=== PATIENT | female | born 1980 | race Caucasian/White ===

== ENCOUNTER 2017-07-19 18:22 | Emergency (ER) | payer OTHER ==
[~2017-07-19] VITALS: Ht 172.7 cm; Wt 70.3 kg
[2017-07-19] MEDS ORDERED: MIRALAX17 GM PO (18:40)
[2017-07-19] MEDS ORDERED: CELEXA10 MG PO (18:40)
[2017-07-19] MEDS ORDERED: TORADOL 10 MG T10 MG PO (18:40)
[2017-07-19 18:57] LABS: URINE BILIRUBIN NEGATIVE (Negative); URINE BLOOD 1+ (Negative); URINE CLARITY CLEAR; URINE COLOR YELLOW; URINE GLUCOSE-RANDOM NEGATIVE (Negative); URINE KETONES NEGATIVE (Negative); URINE LEUKOCYTES-REFLEX NEGATIVE (Negative); URINE NITRITE-REFLEX NEGATIVE (Negative); URINE PROTEIN NEGATIVE (Negative); URINE SPECIFIC GRAVITY 1.015 (1.005-1.030); URINE UROBILINOGEN 0.2 E.U./dl (0.2-1.0)
[2017-07-19 19:11] LABS: ABSOLUTE BASOPHILS 0.1 thou/uL (0.0-0.2); ABSOLUTE EOSINOPHILS 0.1 thou/uL (0.0-0.7); ABSOLUTE LYMPHOCYTES 1.9 thou/uL (0.8-5.3); ABSOLUTE MONOCYTES 0.4 thou/uL (0.0-1.2); ABSOLUTE NEUTROPHILS 3.7 thou/uL (1.6-8.1); BASOPHILS 1.3 %; EOSINOPHILS 1.5 %; HEMATOCRIT 37.2 % (37.0-47.0); HEMOGLOBIN 12.8 gm/dL (12.0-15.0); LYMPHOCYTES 30.3 %; MCH 31.2 pg (26.0-34.0); MCHC 34.5 g/dL (28.0-37.0); MCV 90.4 fL (80.0-100.0); MONOCYTES 6.4 %; MPV 7.9 fl. (7.2-11.1); NUCLEATED RBCS 0 /100WBC; PLATELET COUNT* 232 thou/uL (150-400); POLYS 60.5 %; RBC 4.12 mil/uL (4.20-5.00); RDW-CV 12.6 % (10.5-14.5); WBC 6.1 thou/uL (4.0-11.0)
[2017-07-19 19:15] LABS: CALCIUM 8.4 mg/dL (8.5-10.1); CREATININE 1.2 mg/dL (0.6-1.3); POTASSIUM 3.9 mmol/L (3.5-5.1)
[2017-07-19 19:17] LABS: SQUAMOUS 0-3 Few /LPF (0-3)
[2017-07-19 19:18] LABS: BACTERIA-REFLEX None Seen /HPF (None Seen); CASTS None Seen /LPF (None Seen); CRYSTALS None Seen /LPF (None Seen); MUCUS None Seen strn/LPF (None Seen); URINE RBC 3-10 Few /HPF (0-2); URINE WBC-REFLEX None Seen /HPF (0-5)
[2017-07-19 19:20] LABS: ALBUMIN 3.5 g/dL (3.4-5.0); TOTAL BILIRUBIN 0.2 mg/dL (<0.1-1.0); TOTAL PROTEIN 6.7 g/dL (6.4-8.2)
[2017-07-19] MEDS ORDERED: PERCOCET 5-3251 EACH PO (20:15)
[2017-07-19] MEDS ORDERED: FLOMAX0.4 MG PO (20:15)
[2017-07-19] MEDS ORDERED: ZOFRAN ODT4 MG PO (20:15)
[2017-07-19 20:45] VITALS: BP 121/92
== END 2017-07-19 20:47 | disposition home or self-care (01) ==
LOC: M.ERS 18:22
PROVIDERS: Nurse Practitioner Family
DX: N20.1 Calculus of ureter (principal); R31.9 Hematuria, unspecified; Z87.442 Personal history of urinary calculi

== ENCOUNTER 2017-07-22 14:54 | Inpatient (IN) | payer OTHER ==
[~2017-07-22] VITALS: Ht 172.7 cm; Wt 72.6 kg
[~2017-07-22 14:54] MED LIST: CELEXA10 MG PO; FLOMAX0.4 MG PO; MIRALAX17 GM PO; PERCOCET 5-3251 EACH PO; TORADOL 10 MG T10 MG PO; ZOFRAN ODT4 MG PO
[2017-07-22 15:06] VITALS: BP 113/86
[2017-07-22 15:24] LABS: URINE BILIRUBIN NEGATIVE (Negative); URINE BLOOD TRACE (Negative); URINE CLARITY CLEAR; URINE COLOR STRAW; URINE GLUCOSE-RANDOM NEGATIVE (Negative); URINE KETONES NEGATIVE (Negative); URINE LEUKOCYTES-REFLEX 1+ (Negative); URINE NITRITE-REFLEX NEGATIVE (Negative); URINE PROTEIN NEGATIVE (Negative); URINE SPECIFIC GRAVITY <= 1.005 (1.005-1.030); URINE UROBILINOGEN 0.2 E.U./dl (0.2-1.0)
[2017-07-22 15:31] LABS: CASTS None Seen /LPF (None Seen); CRYSTALS None Seen /LPF (None Seen); SQUAMOUS >10 Many /LPF (0-3)
[2017-07-22 15:32] LABS: URINE RBC 0-2 Rare /HPF (0-2); URINE WBC-REFLEX 0-5 Rare /HPF (0-5)
[2017-07-22 15:50] LABS: ABSOLUTE BASOPHILS 0.1 thou/uL (0.0-0.2); ABSOLUTE EOSINOPHILS 0.1 thou/uL (0.0-0.7); ABSOLUTE LYMPHOCYTES 1.9 thou/uL (0.8-5.3); ABSOLUTE MONOCYTES 0.4 thou/uL (0.0-1.2); BASOPHILS 1.1 %; EOSINOPHILS 0.9 %; HEMATOCRIT 34.6 % (37.0-47.0); HEMOGLOBIN 11.8 gm/dL (12.0-15.0); LYMPHOCYTES 29.1 %; MCH 31.1 pg (26.0-34.0); MCHC 34.2 g/dL (28.0-37.0); MCV 90.9 fL (80.0-100.0); MONOCYTES 6.8 %; MPV 8.2 fl. (7.2-11.1); NUCLEATED RBCS 0 /100WBC; PLATELET COUNT* 229 thou/uL (150-400); POLYS 62.1 %; RBC 3.81 mil/uL (4.20-5.00); RDW-CV 12.4 % (10.5-14.5); WBC 6.4 thou/uL (4.0-11.0)
[2017-07-22 15:59] LABS: CALCIUM 8.6 mg/dL (8.5-10.1); CREATININE 1.2 mg/dL (0.6-1.3); POTASSIUM 3.8 mmol/L (3.5-5.1)
[2017-07-22 16:04] LABS: ALBUMIN 3.5 g/dL (3.4-5.0); TOTAL BILIRUBIN 0.3 mg/dL (<0.1-1.0); TOTAL PROTEIN 7.1 g/dL (6.4-8.2)
[2017-07-22 17:08] VITALS: BP 126/81
[2017-07-22 17:44] VITALS: BP 122/76
[2017-07-22 20:30] VITALS: BP 102/72
[2017-07-23 08:00] VITALS: BP 101/61
[2017-07-23 10:25] VITALS: BP 101/61
[2017-07-23 15:30] VITALS: BP 98/71
[2017-07-23] MEDS ORDERED: LEVSIN-SL0.125 MG PO (19:03)
[2017-07-23] MEDS ORDERED: PHENAZOPYRIDIN200 M2 PO (19:04)
[2017-07-23 19:06] VITALS: BP 98/71
--- NOTE | 2017-07-27 15:49 | OP ---
[facility] [address] [place] [address] OPERATIVE REPORT Name: ZAC RICHARDS Room: [address]#: [id number] Admission: 07/22/17 Attend Phys: Smooth Wolfe, Discharge: 07/23/17 Date of : 80 Report #: [id number] THIS REPORT FOR: //name// CC: [facility] Peri Mathewsrick Wolfe DATE OF SERVICE: 07/23/2017 PREOPERATIVE DIAGNOSIS: Left proximal ureteral stone. POSTOPERATIVE DIAGNOSIS: Left proximal ureteral stone. PROCEDURE: Cystourethroscopy, left retrograde pyelogram, left ureteroscopy, laser lithotripsy, basket extraction of stone and left ureteral stent placement (6 x 26). SURGEON: Kacey Parra M.D. ANESTHESIA: General. ESTIMATED BLOOD LOSS: None. COMPLICATIONS: None. SPECIMEN: Stone. INDICATION FOR PROCEDURE: The patient is a 36-year-old female with a 6-7 mm left proximal stone. She has failed outpatient management. She saw me in clinic last week and we had put her on the schedule next week for her elective ureteroscopy, but she presented to the ER last night with intractable nausea, vomiting and pain. She does wish to go ahead and proceed with ureteroscopy now. Risks of procedure were discussed including but not limited to infection, bleeding, injury to the urethra, bladder, ureter, need for secondary procedures, ureteral stricture, stent pain, cardiopulmonary complications. She voiced understanding and wished to proceed. DESCRIPTION OF PROCEDURE: After informed consent was obtained, the patient was taken to the operating suite and placed supine. After induction of general anesthesia, she was placed in dorsal lithotomy position. Genitalia were prepped and draped in standard fashion. Rigid cystoscopy was performed. Bladder mucosa was normal. She had orthotopic ureteral orifices. The stone was visible on fluoroscopy in the proximal ureter. A sensor wire was inserted up into the kidney, past the stone without much difficulty. A scope was removed using dual lumen catheter. Retrograde was performed. No other filling defects were noted and aside from the proximal stone. A second wire was [place] [address] OPERATIVE REPORT Name: ZAC RICHARDS Room: [address]#: [id number] Admission: 07/22/17 Attend Phys: Smooth Wolfe, Discharge: 07/23/17 Date of : 80 Report #: [id number] removed using the 03/27 ureteral access sheath. This was threaded over the one of the wires to the level of the mid ureter without difficulty. Flexible ureteroscope was advanced up into the ureter. There was an area of edema and inflammation where the stone had been sitting and the stone had been pushed back into the renal pelvis. The 200 micron holmium laser fiber was used to break this up and a 0 tip nitinol basket was used to extract pieces. Anything remaining was very tiny, sand-like in size. All calices were inspected. There were no remaining fragments or other stones. The scope was backed out along with the sheath under direct visualization. There was no injury from the sheath. Dual lumen was reintroduced and retrograde was again performed to delineate collecting system for stent placement. The wire was backloaded through the cystoscope and a 6-Lithuanian x 26-cm double-J stent was threaded over the wire. A good curl was seen within the renal pelvis and good curl was seen within the bladder. The bladder was then drained and the scope was removed, 5 mL lidocaine jelly were placed per urethra and a B and O suppository 60 mg was placed per rectum for postoperative discomfort. The patient was awoken, extubated and taken to recovery in satisfactory condition. She will be admitted back to the floor and dismissed home later today if pain is controlled. She will follow up with me in 7-10 days for stent removal. <ELECTRONICALLY SIGNED> By: Kacey Parra MD 07/27/17 1549 [id number] Parra MD /nt
[2017-08-02 18:07] LABS: STONE CA OXALATE DIHYDRATE 30 % (()); STONE CA OXALATE MONOHYDRATE 50 % (()); STONE CALCIUM PHOSPHATE 20 % (()); STONE COLOR Tan (())
== END 2017-07-23 19:00 | disposition home or self-care (01) | DRG 669 ==
LOC: M.ERS 14:54 → M.TBA-ER 16:16 → M.ORTHSURG 17:32
PROVIDERS: Nurse Practitioner Family; Urology; ADMIT Family Medicine
DX: N13.2 Hydronephrosis with renal and ureteral calculous obstruction (principal); N39.0 Urinary tract infection, site not specified; Z90.49 Acquired absence of other specified parts of digestive tract; Z79.899 Other long term (current) drug therapy

== ENCOUNTER 2019-02-24 17:35 | Emergency (ER) | payer OTHER ==
[~2019-02-24] VITALS: Ht 172.7 cm; Wt 77.1 kg
[~2019-02-24 17:35] MED LIST changes: +LEVSIN-SL0.125 MG PO; +PHENAZOPYRIDIN200 M2 PO
[2019-02-24] MEDS ORDERED: MIRALAX119 GM PO (17:45)
[2019-02-24 17:47] LABS: URINE BILIRUBIN NEGATIVE (Negative); URINE BLOOD NEGATIVE (Negative); URINE CLARITY CLEAR; URINE COLOR YELLOW; URINE GLUCOSE-RANDOM NEGATIVE (Negative); URINE KETONES NEGATIVE (Negative); URINE LEUKOCYTES-REFLEX NEGATIVE (Negative); URINE NITRITE-REFLEX NEGATIVE (Negative); URINE PROTEIN NEGATIVE (Negative); URINE SPECIFIC GRAVITY 1.025 (1.005-1.030); URINE UROBILINOGEN 0.2 E.U./dl (0.2-1.0)
[2019-02-24 18:11] LABS: ABSOLUTE BASOPHILS 0.1 thou/uL (0.0-0.2); ABSOLUTE EOSINOPHILS 0.1 thou/uL (0.0-0.7); ABSOLUTE LYMPHOCYTES 2.2 thou/uL (0.8-5.3); ABSOLUTE MONOCYTES 0.5 thou/uL (0.0-1.2); ABSOLUTE NEUTROPHILS 6.3 thou/uL (1.6-8.1); BASOPHILS 0.9 %; HEMATOCRIT 37.7 % (37.0-47.0); HEMOGLOBIN 13.2 gm/dL (12.0-15.0); LYMPHOCYTES 23.6 %; MCH 31.2 pg (26.0-34.0); MCHC 34.9 g/dL (28.0-37.0); MCV 89.5 fL (80.0-100.0); NUCLEATED RBCS 0 /100WBC; PLATELET COUNT* 269 thou/uL (150-400); POLYS 69.5 %; RBC 4.22 mil/uL (4.20-5.00); RDW-CV 13.5 % (10.5-14.5); WBC 9.1 thou/uL (4.0-11.0)
[2019-02-24 18:16] LABS: CALCIUM 8.7 mg/dL (8.5-10.1); CREATININE 0.8 mg/dL (0.6-1.3); POTASSIUM 3.7 mmol/L (3.5-5.1)
[2019-02-24 18:20] LABS: ALBUMIN 3.9 g/dL (3.4-5.0); TOTAL BILIRUBIN 0.3 mg/dL (<0.1-1.0)
[2019-02-24] MEDS ORDERED: FLEXERIL PO (19:31)
[2019-02-24 19:50] VITALS: BP 133/80
== END 2019-02-24 19:50 | disposition home or self-care (01) ==
LOC: M.ERS 17:35
PROVIDERS: Family Medicine; Nurse Practitioner Family
DX: M54.6 Pain in thoracic spine (principal); Z87.442 Personal history of urinary calculi; Z98.890 Other specified postprocedural states